=== PATIENT | male | born 1970 ===

== ENCOUNTER 2019-02-10 17:48 | Emergency (ER) | payer OTHER ==
[2019-02-10 18:57] VITALS: BP 106/65; PULSE 58; RESP 16; TEMP 98.7; O2SAT 100
--- NOTE | 2019-02-10 19:19 | ED PDOC ---
Lower Extremity Pain/Injury Time Seen by Provider: 02/10/19 19:00 Chief Complaint (Nursing): Lower Extremity Problem/Injury Chief Complaint (Provider): RIGHT KNEE PAIN History Per: Patient History/Exam Limitations: no limitations Onset/Duration Of Symptoms: Days Current Symptoms Are (Timing): Still Present Pain Scale Rating Of: 6 Additional History Per: Patient Additional Complaint(s): 48 YEAR OLD MALE WITH NO SIGNIFICANT MEDICAL HISTORY C/O RIGHT KNEE PAIN AFTER HE TRIPPED AND FALL YESTERDAY DOWN TWO STEPS AND LANDED ON RIGHT KNEE. PATIENT STATES HE NEED TWISTED AND SINCE THEN HAS PAIN ON AMBULATION AND WITH RANGE OF MOTION. HE SAYS HE HAD HARDWARE IN KNEE PLACED 12 YEARS AGO AND SINCE THEN HAS HAD NO PROBLEMS WITH KNEE. PATIENT CALLED ORTHOPEDIST WHO SUGGESTED PATIENT TO COME GET XRAY AND MRI OF KNEE. PATIENT HAS BEEN AMBULATING ON KNEE WITH KNEE BRACE. - Knee Description Of Injury: Fell - Risk Factors DVT Risk Factors: Pos: None Past Medical History Reviewed: Historical Data, Nursing Documentation, Vital Signs Vital Signs: Last Vital Signs Temp 98.7 F 02/10/19 18:53 Pulse 58 L 02/10/19 18:53 Resp 16 02/10/19 18:53 BP 106/65 02/10/19 18:53 Pulse Ox 100 02/10/19 18:53 - Medical History PMH: No Chronic Diseases - Surgical History Surgical History: No Surg Hx - Family History Family History: States: Unknown Family Hx - Living Arrangements Living Arrangements: With Family - Social History Alcohol: None Drugs: Denies - Home Medications Home Medications: Ambulatory Orders Medication Instructions Recorded Ibuprofen [Motrin Tab] 800 mg PO Q8H PRN #30 tab 02/10/19 - Allergies Allergies/Adverse Reactions: Allergies Allergy/AdvReac Type Severity Reaction Status Date / Time No Known Allergies Allergy Verified 02/10/19 18:54 Review of Systems ROS Statement: Except As Marked, All Systems Reviewed And Found Negative Constitutional: Negative for: Fever, Chills, Sweats, Weakness, Malaise, Weight loss Musculoskeletal: Positive for: Leg Pain (KNEE PAIN) Physical Exam - Reviewed Nursing Documentation Reviewed: Yes Vital Signs Reviewed: Yes - Physical Exam Appears: Positive for: Well, Non-toxic, No Acute Distress Head Exam: Positive for: ATRAUMATIC, NORMAL INSPECTION, NORMOCEPHALIC Skin: Positive for: Normal Color, Warm, DRY Eye Exam: Positive for: EOMI, Normal appearance, PERRL ENT: Positive for: Normal ENT Inspection Neck: Positive for: Normal, Painless ROM Cardiovascular/Chest: Positive for: Regular Rate, Rhythm Respiratory: Positive for: CNT, Normal Breath Sounds Pulses-Dorsalis Pedis (L): 2+ Pulses-Dorsalis Pedis (R): 2+ Gastrointestinal/Abdominal: Positive for: Normal Exam, Soft Back: Positive for: Normal Inspection Extremity: Positive for: Normal ROM, Tenderness (MEDIAL LATERAL KNEE. FULL ROM OF NEED/WITH DISCOMFORT. ), Capillary Refill, Swelling. Negative for: Calf Tenderness, Deformity DTR - Ankle (R): 2+ DTR - Ankle (L): 2+ Neurological/Psych: Positive for: Awake, Alert, Normal Tone, Oriented - ECG O2 Sat by Pulse Oximetry: 100 Medical Decision Making Medical Decision Making: MOTRIN 800MG PO XRAY RIGHT KNEE (NEG FOR FRACTURE) 19:58: KNEE XRAY NEG FOR FRACTURE. XAY VIEWED BY ME AND DR. WELLS. CLINICAL FINDINGS DISCUSSED WITH PATIENT AND STATES HE UNDERSTANDS AND AGREES WITH PLAN. PATIENT TO BE PLACED IN KNEE IMMOBILIZER. PATIENT REFUSED CRUTCHES. RX GIVEN MOTRIN NEEDED. GIVEN CD WITH FILMS. PATIENT IS GOING TO FOLLOW-UP AT S TOMORROW FOR POSS MRI. Disposition - Clinical Impression Clinical Impression: Knee contusion - Patient ED Disposition Is Patient to be Admitted: No Counseled Patient/Family Regarding: Diagnosis, Need For Followup - Disposition Disposition: Routine/Home Disposition Time: 19:58 Condition: GOOD Prescriptions: Ibuprofen [Motrin Tab] 800 mg PO Q8H PRN #30 tab PRN Reason: Pain, Moderate (4-7) Instructions: Contusion (DC) - POA Present On Arrival: None
--- NOTE | 2019-02-11 08:46 | RAD ---
Date of service: 02/10/2019 PROCEDURE: Right Knee Radiographs. HISTORY: FALL COMPARISON: None. TECHNIQUE: 2 views obtained. FINDINGS: BONES: No fracture appreciated. Status post anterior cruciate ligament reconstruction changes noted. Tibial and femoral tunnels noted. Femoral notchplasty suggested. Single lateral femoral metaphyseal screw in place. Bordering anterior superior tibial tuberosity a 2 cm by 0.5 cm well corticated ossification-a chronic appearance is noted postop status and or old remote unfused anterior tibial tuberosity apophysis suggested. An old osseous avulsion here also compatible with this appearance Tibial spine spurring. JOINTS: Tricompartmental osteoarthrosis. JOINT EFFUSION: None suspect. OTHER FINDINGS: quadriceps insertional enthesophyte. IMPRESSION: No acute fracture appreciated. No dislocation. Postop changes and additional findings as detailed above. Comments: Study marked for PA review. No preliminary ER report available.
== END 2019-02-10 20:22 | disposition home or self-care (01) ==
LOC: H.ER 17:48
DX: S80.01XA Contusion of right knee, initial encounter (principal); W10.9XXA Fall (on) (from) unspecified stairs and steps, initial encounter